=== PATIENT | male | born 1980 | race Caucasian/White ===

== ENCOUNTER 2025-01-11 18:04 | Emergency (ER) | payer SELFPAY ==
[~2025-01-11] VITALS: Ht 177.8 cm; Wt 99.8 kg
[2025-01-11] MEDS ORDERED: ACETAMINOPHEN 500 MG TABLET ONE (18:56)
[2025-01-11] MEDS: ACETAMINOPHEN 500 MG TABLET PO ONE (19:00)
[2025-01-11] MEDS: ONDANSETRON ODT 4 MG TAB.RAPDIS SL ONE (19:00)
[2025-01-11] MEDS ORDERED: ONDA4TAB11 PO (21:34)
[2025-01-11 21:46] VITALS: BP 114/70; TEMP 98.5; O2SAT 99
== END 2025-01-11 21:47 | disposition home or self-care (01) ==
LOC: ER 18:18
DX: S06.0XAA Concussion with loss of consciousness status unknown, initial encounter (principal); S16.1XXA Strain of muscle, fascia and tendon at neck level, initial encounter; S30.0XXA Contusion of lower back and pelvis, initial encounter; R10.2 Pelvic and perineal pain; R11.0 Nausea; R53.1 Weakness; G44.309 Post-traumatic headache, unspecified, not intractable; W18.30XA Fall on same level, unspecified, initial encounter; Y93.9 Activity, unspecified; Y92.9 Unspecified place or not applicable; Y99.9 Unspecified external cause status
CPT/HCPCS: 70450; 72125; 72131; 72192; A4606; A4663; A9150; Q0162